=== PATIENT | female | born 1965 | race Caucasian/White ===

== ENCOUNTER → 2019-07-05 | Outpatient (CLI) | payer OTHER | LOC: SJCVCIMAG 08:55 | DX: I07.1 Rheumatic tricuspid insufficiency (principal); I49.8 Other specified cardiac arrhythmias ==

== ENCOUNTER → 2019-07-17 | Outpatient (CLI) | payer OTHER ==
[~2019-07-17] VITALS: Ht 162.6 cm; Wt 58.1 kg
[~2019-07-17] MED LIST: COLLAGEN PLUS1 EACH PO; FISH OIL 1,001000 M3 PO; FISH-FLAX-BORA1 EACH PO; LACTASE 3000U T1 TA1 PO; TUMERSAID TABL1 EACH PO; UNICOMPLEX M TA1 TA1 PO; VIT C-ROSE HIP500 MG PO
[2019-07-17 07:29] VITALS: BP 103/68
[2019-07-17 07:32] LABS: ABSOLUTE NEUTROPHILS 2.4 thou/uL (1.4-8.2); BASOPHILS 0.1 % (0.0-2.0); EOSINOPHILS 2.7 % (0.0-3.0); HEMATOCRIT 43.5 % (37.0-47.0); HEMOGLOBIN 14.8 gm/dL (12.0-15.0); LYMPHOCYTES 42.4 % (24.0-44.0); MCH 32.2 pg (26.0-34.0); MCHC 34.1 g/dL (28.0-37.0); MCV 94.4 fL (80.0-100.0); MONOCYTES 8.6 % (1.0-8.0); PLATELET COUNT 276 thou/uL (150-400); POLYS 46.2 % (36.0-66.0); RBC 4.61 mil/uL (4.20-5.00); RDW 13.3 % (10.5-14.5); WBC 5.1 thou/uL (4.0-11.0)
[2019-07-17 07:42] LABS: CALCIUM 9.4 mg/dL (8.5-10.1); CREATININE 0.8 mg/dL (0.6-1.0); POTASSIUM 4.1 mmol/L (3.5-5.1)
[2019-07-17 07:46] LABS: ALBUMIN 4.2 g/dL (3.4-5.0); APTT 26.2 Seconds (24.5-32.8); PROTIME 9.7 Seconds (9.3-11.4); TOTAL BILIRUBIN 0.3 mg/dL (0.2-1.0); TOTAL PROTEIN 7.2 g/dL (6.4-8.2)
--- NOTE | 2019-07-26 15:54 | P ---
[facility] [place] [address] PROCEDURE REPORT Name: BRANDON OBREGON Room #: REG DEEPAK [place].#: [id number] Admission: 07/17/19 Attend Phys: Cristopher Roberts MD Discharge: Date of : 61 Report #: [id number] THIS REPORT FOR: cc: Baldemar Quiroz MD, [place] S. MD Couchonnal, Luis F. MD ~ CC: Cristopher Quiroz PREOPERATIVE DIAGNOSIS: Supraventricular tachycardia. POSTOPERATIVE DIAGNOSIS: Supraventricular tachycardia. HISTORY: The patient is a 54-year-old with history of recurrent SVT, recently documented on a air sampling and monitoring, who is here for EP study and possible ablation. PROCEDURES PERFORMED: 1. Comprehensive EP study, CPT code 28785. 2. EP with left atrial pacing and recording, CPT code 15124. 3. Program stimulation pacing after IV drug infusion, CPT code 45226. ANESTHESIA: The patient underwent MAC anesthesia with no anesthesia related complications. DESCRIPTION OF PROCEDURE: The patient underwent informed consent. We discussed the details of the procedure including the risks, which include but not limited to bleeding, infection, vascular damage, cardiac perforation, stroke, IA as well as damage to rincon conduction system requiring permanent pacemaker. She understood these risks and is willing to proceed. The patient was brought to EP laboratory in a fasting and unsedated state and prepped and draped in a sterile fashion. I obtained access to the bilateral femoral veins placing an 8 and 6-Cypriot short sheath in the right femoral vein and 6 and 7-Cypriot short sheath in the left femoral vein. Under fluoroscopy, I placed 3 quadripolar catheters at the HRA, His and RV positions and Decapolar catheter in the coronary sinus for left atrial pacing and recording. The patient underwent a basic EP study. At baseline, the patient was in sinus rhythm with sinus cycle length of 1055 milliseconds, UT interval 175 milliseconds, QRS duration 84 milliseconds, QT interval 433 milliseconds, AH interval 90 milliseconds, HV interval 45 milliseconds. Next, atrial burst pacing was performed and AV block was noted at 390 milliseconds. Atrial ERP was noted at 300 milliseconds at a [address] cycle length. There were no jumps noted. Next, ventricular pacing was performed and there was evidence of no VA conduction. Next, isoproterenol was initiated at 2 mcg per minute. VA block was noted at 340 milliseconds with both midline and decremental conduction. Ventricular ERP was noted at 190 milliseconds at a [address] [facility] [address] [address] PROCEDURE REPORT Name: BRANDON OBREGON [id number] Admission: 07/17/19 Attend Phys: Cristopher Roberts MD Discharge: Date of : 61 Report #: [id number] basic [address] cycle length. AV block was noted at 300 milliseconds and atrial ERP was noted at 200 milliseconds at a [address] cycle length. Double and triple atrial extrastimuli were delivered and no SVT was induced. There was an occasional single AV kirsten echo noted. Next, isoproterenol was increased to 4 mcg per minute and aggressive atrial pacing maneuvers were performed again with double and triple atrial extrastimuli and occasionally the node was a single AV kirsten echo. Isoproterenol was then increased to 6 mcg per minute and AV block was noted at 230 milliseconds. Double and triple atrial extrastimuli were delivered and no SVT was induced. VA block was noted at 330 milliseconds and ventricular ERP was noted at 190 milliseconds at [address] cycle length. I then decreased isoproterenol to 2, tested on this for a while, increased back to 4 and with aggressive atrial burst pacing, I did get atrial fibrillation that lasted about 10 seconds and terminated on its own. I then went back up to 6 mcg per minute of isoproterenol and again we continued to aggressively performed atrial burst pacing. There was nothing to suggest an accessory pathway. There was no induction of any atrial tachycardias nor was there any suggestion of AV kirsten reentrant tachycardia other than an occasional single AV kirsten echo, but there were no jumps and there was no double AV kirsten echoes. Isoproterenol was therefore turned off and we had been testing for 2 hours and had not induce anything. Post-ablation, the patient was in sinus rhythm, sinus cycle length of 760 milliseconds, UT interval 170 milliseconds, QRS duration 120 milliseconds, QT interval 400 milliseconds, AH interval 110 milliseconds, HV interval 45 milliseconds. Of note, with aggressive atrial burst pacing, the patient would develop right bundle-branch block aberration, but this was on high isoproterenol. As such, the etiology of her SVT that is documented on a air sampling and monitoring is more than likely an atrial tachycardia that we could not initiate today. As such, all catheters and sheaths were pulled. Hemostasis was obtained and the patient awoke neurologically and hemodynamically intact. No complications and no significant bleeding. CONCLUSIONS: 1. Normal SA kirsten function. 2. Normal AV kirsten function. 3. Normal His-Purkinje function. 4. No evidence of accessory pathway mediated tachycardia. 5. No evidence of dual AV kirsten physiology. RECOMMENDATIONS: We will continue with medication therapy. <ELECTRONICALLY SIGNED> By: Cristopher Roberts MD 07/26/19 [id number] Cristopher Roberts MD /nt
== END | disposition home or self-care (01) ==
LOC: CATH
PROVIDERS: ATTEND Internal Medicine Cardiovascular Disease
DX: I47.1 Supraventricular tachycardia (principal); I10 Essential (primary) hypertension; E78.5 Hyperlipidemia, unspecified; J44.9 Chronic obstructive pulmonary disease, unspecified; I51.9 Heart disease, unspecified; Z98.890 Other specified postprocedural states; Z79.899 Other long term (current) drug therapy; Z79.01 Long term (current) use of anticoagulants; Z11.59 Encounter for screening for other viral diseases
CPT/HCPCS: 62110; 62900; 70005